=== PATIENT | female | born 1950 | race African-American/Black ===

== ENCOUNTER 2017-02-19 19:26 | Emergency (ER) | payer OTHER ==
[2017-02-19 19:34] VITALS: BMI 27.6
--- NOTE | 2017-02-19 20:45 | DR.GENAD ---
HPI - PCP Primary Care Physician: gena - Complaint/Symptoms Chief Complaint Doctors Comments: Patient presents with complaint of cough and congestion of one days duration. She states that she has a cold. Chief Complaint:: cough cold congestion - Source History Provided: Patient - Mode of Arrival Mode of Arrival: Ambulatory - Timing Onset of Chief Complaint: 02/18/17 PMH - PMH Past Medical History: Yes Past Medical History: Hypertension Past Surgical History: Yes Surgical History: Hysterectomy - Family History History of Family Medical Conditions: Yes Family Medical History: Coronary Artery Disease, Hypertension - Social History Does patient currently use any type of tobacco product: No Have you used tobacco products in the last 12 months: No Type of Tobacco Use: Cigarettes Does any household member use tobacco: No Alcohol Use: None Do you use any recreational Drugs:: No Lives With: Spouse Lives Where: Home - infectious screening In the last 2 months have you had wt loss of >10#?: NO Have you had fever, night sweats or hemotysis?: No Have you traveled outside the country in the last 6 months?: No Isolation: Standard ROS - Review of Systems Constitutional: negative: Diaphoresis Eyes: No Symptoms Reported ENTM: No Symptoms Reported Respiratoy: No Symptoms Reported Cardiovascular: No Symptoms Reported Gastrointestinal/Abdominal: No Symptoms Reported Genitourinary: No Symptoms Reported Neurological: No Symptoms Reported Musculoskeletal: No Symptoms Reported Integumentary: No Symptoms Reported Hematologic/Lymphatic: No Symptoms Reported Endocrine: No Symptoms Reported Psychiatric: No Symptoms Reported All Other Systems: Reviewed and Negative PE - Vital Signs Vitals: Temperature 99.8 F Pulse Rate 101 Respiratory Rate 16 Blood Pressure 201/105 O2 Sat by Pulse Oximetry 100 - General Limitations: No Limitations General Appearance: Alert, In No Apparent Distress - Head Head Exam: Normal Inspection, Atraumatic - Eyes Eye exam: Normal Appearance, PERRL, EOMI - ENT ENT Exam: Normal Exam, Normal Oropharynx External Ear Exam: Normal External Inspection TM/Canal Exam: Bilateral Normal Nose Exam: Normal Nose Exam, Sinus Tenderness Mouth Exam: Normal Inspection, Drooling Throat Exam: Normal Inspection, Tonsillar Erythema - Neck Neck Exam: Normal Inspection, Full ROM - Chest Chest Inspection: Normal Inspection, Symmetric Chest Wall Rise - Respiratory Respiratory Exam: Normal Lung Sounds Bilat Respiratory Exam: Bilateral Clear to Auscultation - Abdominal Exam Abdominal Exam: Normal Inspection, Normal Bowel Sounds Abdominal Tenderness: negative: RUQ, RLQ, LUQ, LLQ, Epigastrium, Suprapubic, Diffuse, Mild, Moderate, Severe, Other - Extremities Extremities Exam: Normal Inspection, Full ROM - Back Back Exam: Normal Inspection - Neurologic Neurological Exam: Alert, Oriented X3, CN II-XII Intact - Psychiatric Psychiatric Exam: Normal Affect, Normal Mood - Skin Skin Exam: Warm, Dry, Intact ROR - Labs Reviewed Laboratory Results Reviewed?: Yes (strep negative) Laboratory: Streptococcus Screen Negative (NEGATIVE) 02/19/17 20:16 - Diagnosis Discharge Problem: Upper respiratory infection Qualifiers: URI type: unspecified viral URI Qualified Code(s): J06.9 - Acute upper respiratory infection, unspecified; B97.89 - Other viral agents as the cause of diseases classified elsewhere; B97.89 - Other viral agents as the cause of diseases classified elsewhere - Discharge Plan Condition: Stable - Follow ups/Referrals Follow ups/Referrals: JESSICA CHAVEZ [Primary Care Provider] - 3 days - Instructions
[2017-02-19] MEDS ORDERED: TUSSIONEX PENNKINETIC SUSP PO ONE (20:46)
[2017-02-19] MEDS ORDERED: CATAPRES TAB 0.1 MG PO ONE (20:55)
[2017-02-19] MEDS ORDERED: TUSSIONEX PENNKINETIC SUSP ONE (20:56)
[2017-02-19] MEDS ORDERED: CATAPRES TAB 0.1 MG ONE (20:56)
[2017-02-19 22:05] VITALS: BP 173/86
== END 2017-02-19 22:00 | disposition home or self-care (01) ==
LOC: ER 19:41
DX: J06.9 Acute upper respiratory infection, unspecified (principal); B97.89 Other viral agents as the cause of diseases classified elsewhere
CPT/HCPCS: 87070; 87880; 99282

== ENCOUNTER → 2017-03-19 | Outpatient (CLI) | payer OTHER ==
[2017-02-19 22:05] VITALS: BP 173/86
--- NOTE | 2017-03-19 13:30 | RAD ---
Examination: Chest, PA and lateral views History: Cough, hypertension Comparison reference: 09/05/2014 Findings: Continued normal heart size with clear lungs. There is tortuous ectasia of the descending a esau. There is no evidence for CHF, pneumonia or pleural effusion. Impression: No interval change; no acute disease. Reported By:
== END ==
LOC: RAD 12:21
PROVIDERS: ATTEND Nurse Practitioner Family
DX: R05 Cough (principal); J41.8 Mixed simple and mucopurulent chronic bronchitis
CPT/HCPCS: 71020

== ENCOUNTER → 2017-04-02 | Outpatient (CLI) | payer OTHER ==
--- NOTE | 2017-04-06 10:55 | MG ---
HISTORY: SCREENING Comparison: 01/29/2016 FINDINGS: Bilateral CC and MLO projections of the right and left breast were obtained. Scattered fibroglandula r tissue is seen to be present. No significant architectural distortion, mass or clustered microcalc ifications can be observed to suggest malignancy. No skin thickening or nipple retraction is appreci ated. No pathological lymphadenopathy can be identified. Benign-appearing calcifications scattered throughout the right and left breasts are observed. IMPRESSION: NO RADIOGRAPHIC EVIDENCE OF MALIGNANCY. ACR CATEGORY 2 - benign findings. FOLLOW-UP EXAM 1 YEAR. Diagnostic CAD was utilized and reviewed. * 0 (ZERO) - ASSESSMENT INCOMPLETE; ADDITIONAL IMAGING IS NEEDED. * 1/ (ONE) - NEGATIVE. * 2/II (TWO) - BENIGN FINDINGS. * 3/III (THREE) - PROBABLY BENIGN FINDING; SHORT INTERVAL FOLLOW-UP SUGGESTED. * 4/IV (FOUR) - SUSPICIOUS ABNORMALITY; BIOPSY SHOULD BE CONSIDERED. * 5/V - HIGHLY SUSPICIOUS OF MALIGNANCY; BIOPSY SHOULD BE PERFORMED. A NEGATIVE X-RAY REPORT SHOULD NOT DELAY BIOPSY IF A DOMINANT OR CLINICALLY SUSPICIOUS MASS IS PRESENT; 4 TO 8 PERCENT OF CANCERS ARE NOT IDENTIFIED BY X-RAY. A NEGA TIVE REPORT MAY REINFORCE THE CLINICAL IMPRESSION. ADENOSIS AND DENSE BREASTS MAY OBSCURE AN UNDERLY ING NEOPLASM. Reported By:
== END ==
LOC: RAD 10:16
PROVIDERS: ATTEND Nurse Practitioner Family
DX: Z12.31 Encounter for screening mammogram for malignant neoplasm of breast (principal)
CPT/HCPCS: 77067

== ENCOUNTER → 2017-08-21 | Outpatient (CLI) | payer OTHER ==
[2017-08-21 08:57] LABS: BASOPHILS # (AUTO) 0.1 X10^3/uL (0.0-0.1); BASOPHILS % (AUTO) 0.8 % (0.2-1.0); EOSINOPHILS # (AUTO) 0.3 x10^3/uL (0.0-0.2); EOSINOPHILS % (AUTO) 3.6 % (0.9-2.9); HEMATOCRIT 39.1 % (36.0-47.0); HEMOGLOBIN 12.9 g/dL (12.0-16.0); LYMPHOCYTES % (AUTO) 28.4 % (21.0-51.0); MEAN CORPUSCULAR HEMOGLOBIN 25.8 pg (27.0-34.0); MEAN CORPUSCULAR HGB CONC 32.9 g/dL (33.0-35.0); MEAN CORPUSCULAR VOLUME 78.2 fL (80.0-100.0); MEAN PLATELET VOLUME 8.5 fL (7.4-11.0); MONOCYTES # (AUTO) 0.7 x10^3/uL (0.3-0.8); MONOCYTES % (AUTO) 9.3 % (0.0-13.0); NEUTROPHILS # (AUTO) 4.1 x10^3/uL (2.2-4.8); NEUTROPHILS % (AUTO) 57.9 % (42.0-75.0); PLATELET COUNT 190 X10^3/uL (150.0-450.0); RED CELL DISTRIBUTION WIDTH 14.6 % (11.6-16.5); WHITE BLOOD COUNT 7.1 X10^3/uL (3.6-10.0)
[2017-08-21 09:23] LABS: PLATELET MORPHOLOGY COMMENT NORMAL (NORMAL)
== END ==
LOC: LAB 08:29
PROVIDERS: ATTEND Internal Medicine Gastroenterology
DX: K64.0 First degree hemorrhoids (principal); K92.1 Melena
CPT/HCPCS: 36415; 82274; 85025

== ENCOUNTER → 2017-09-23 | Outpatient (CLI) | payer OTHER ==
[2017-08-27 10:38] VITALS: BP 140/75
--- NOTE | 2017-09-23 10:37 | RAD ---
Examination: X-rays of the left knee. Clinical history: Left knee pain, denies injury. Technique: Four views of the left knee were obtained. Comparison: None available. Findings: No acute fracture, dislocation, or destructive bony lesion is noted. Osteophytosis is noted in the medial wall, lateral and patellofemoral compartments of the knee, most pronounced in the medial compartment of the knee, consistent with moderate to severe tricompartmental osteoarthritis. No soft tissue abnormality is noted. Impression: 1. No acute fracture or dislocation. 2. Arthropathy, as described above. Reported By:
--- NOTE | 2017-09-23 10:39 | RAD ---
History: Right knee pain Study: Right knee three views Findings: Three views the right knee demonstrates marginal spurring predominantly affecting the media l joint compartment. No fracture, bony destructive process or joint effusion is identified. Impression: Mild to moderate osteoarthrosis of the right knee. Reported By:
== END | disposition home or self-care (01) ==
LOC: RAD 10:04
PROVIDERS: ATTEND Nurse Practitioner Family
DX: M25.562 Pain in left knee (principal); M25.561 Pain in right knee; M17.11 Unilateral primary osteoarthritis, right knee; M12.9 Arthropathy, unspecified
CPT/HCPCS: 73564

== ENCOUNTER → 2017-09-24 | Outpatient (CLI) | payer OTHER ==
[2017-08-27 10:38] VITALS: BP 140/75
--- NOTE | 2017-09-24 15:43 | MRI ---
History: Left knee pain. Exam: Non contrast MRI exam of the left knee. Technique: Multisequence and multiplanar T1 and T2 weighted sequences of the left knee were obtained without the administration of IV paramagnetic contrast at 1.5 [place]. Comparison: None available. Findings: There is moderate, grade 2 and regions of grade 3, patellofemoral chondromalacia and moderate patello femoral compartment DJD observed. There is full-thickness chondromalacia seen throughout the medial k nee compartment where there is also advanced/severe medial knee compartment degenerative change/osteo arthritis with marginal osteophyte formation seen. There is chronic degenerative maceration of much o f the body and posterior horn/root of the medial meniscus observed. There is low-grade undersurface f raying of the lateral meniscus appreciated. There is a large posterior joint osteochondral loose body seen in the medial/posterior knee joint on image number 24 series 701 which measures 12 x 17 mm. Sev eral other tiny loose bodies are also seen in the medial knee compartment. There is a chronic strain of the otherwise intact MCL. There is a chronic strain mucoid degeneration of the otherwise intact AC L. The PCL appears grossly intact as well. No acute posterior lateral corner injury is seen. Degenera tive bone marrow edema seen within the medial femoral condyles and medial tibial plateau with marked medial compartment joint space height loss observed. There is distal quadriceps peritendinitis and mi ld patellar tendinosis, proximally. No other significant knee joint injuries or musculoskeletal abnor malities are identified on this exam. No acute/stress fracture or lytic lesion is observed. Impression: Chronic maceration of much of the medial meniscus with severe, full-thickness, grade 4 medial knee co mpartment chondromalacia and advanced medial knee compartment DJD with marginal medial knee joint ost eophytosis. Chronic ACL and MCL strains. Grade 2/3 patellofemoral compartment chondromalacia and moderate patello femoral compartment osteoarthritis. Degenerative bone marrow edema and marginal osteophytosis seen within medial knee compartment seconda ry to the degree of chondromalacia. Large posterior/medial knee joint osteochondral loose body which measures 12 x 17 mm with several sma ll loose body suggested in the medial knee compartment. Reported By:
== END | disposition home or self-care (01) | DRG 556 ==
LOC: RAD 12:52
PROVIDERS: ATTEND Nurse Practitioner Family
DX: M25.562 Pain in left knee (principal); M17.12 Unilateral primary osteoarthritis, left knee; M94.262 Chondromalacia, left knee
CPT/HCPCS: 73721

== ENCOUNTER 2019-06-21 17:46 | Observation (INO) ==
[2019-06-21 17:57] VITALS: BMI 27.4
--- NOTE | 2019-06-21 20:19 | DR.GENAD ---
HPI Time Seen Time Seen by Provider: 06/21/19 20:15 PCP Primary Care Physician: FRAN KUHN HPI Comment HPI Comment: As below; brbpr x2; no n/v/d/constipation; last stool yesterday was wnl; feels good overall; her bp is normally controlled; no cp, sob. Complaint/Symptoms Chief Complaint:: PT. STATES SHE HAD A COLONSCOPY ON 06/13/[address] ARGUETA. PT. STATES TODAY SHE HAD A BOWEL MOVEMENT AND HER TOILET WAS FULL OF BRIGHT RED BLOOD. PT. C/O ABDOMINAL PAIN. PT. STATES SHE HAS HAD INTERNAL HEMORRHOIDS IN THE PAST AND THEY DID REMOVE SOME POLYPS. Source History Provided: Patient Mode of Arrival Mode of Arrival: Ambulatory Timing Onset of Chief Complaint: 06/21/19 PMH PMH Past Medical History: Yes Past Medical History: GERD, Hypertension and Kidney Stones Past Surgical History: Yes Surgical History: Hysterectomy and Ortho Surgery Family History History of Family Medical Conditions: Yes Family Medical History: Cancer, Coronary Artery Disease and Hypertension Social History Does patient currently use any type of tobacco product: No Have you used tobacco products in the last 12 months: No Type of Tobacco Use: None Does any household member use tobacco: No Alcohol Use: None Do you use any recreational Drugs:: No Lives With: Family Lives Where: Home infectious screening In the last 2 months have you had wt loss of >10#?: NO Have you had fever, night sweats or hemotysis?: No Have you traveled outside the country in the last 6 months?: No Isolation: Standard ROS Review of Systems Constitutional: No Symptoms Reported ENTM: No Symptoms Reported Respiratoy: No Symptoms Reported Cardiovascular: No Symptoms Reported Gastrointestinal/Abdominal: See HPI Genitourinary: No Symptoms Reported Neurological: No Symptoms Reported Musculoskeletal: No Symptoms Reported Hematologic/Lymphatic: See HPI PE Vital Signs Vitals: Temperature 97.9 F Pulse Rate 63 Respiratory Rate 17 Blood Pressure [Left Arm] 178/89 Blood Pressure 131/69 O2 Sat by Pulse Oximetry 97 General Limitations: No Limitations General Appearance: Alert and In No Apparent Distress Head Head Exam: Normal Inspection, Atraumatic and Normocephalic Eyes Eye exam: Normal Appearance Neck Neck Exam: Normal Inspection and Full ROM Chest Chest Inspection: Normal Inspection and Symmetric Chest Wall Rise Respiratory Respiratory Exam: Normal Lung Sounds Bilat Respiratory Exam: Bilateral: Clear to Auscultation Cardiovascular Cardiovascular Exam: Regular Rate and Normal Rhythm Abdominal Exam Abdominal Exam: Normal Inspection, Normal Bowel Sounds, Soft and Other (rectal: no gross blood or stool, ? int hemorrhoid, several external hemorrhoids) Extremities Extremities Exam: Normal Inspection Neurologic Neurological Exam: Alert, Oriented X3 and CN II-XII Intact COURSE Reevaluation 1st: Unchanged Consultation Call Returned: 23:02 (Fay accepts admission) ROR Labs Reviewed Laboratory Results Reviewed?: Yes Result Diagrams: 06/21/19 20:32 06/21/19 20:32 Laboratory: WBC 9.6 X10^3/uL (3.6-10.0) 06/21/19 20: RBC 4.91 X10^6/uL (3.5-5.4) 06/21/19 20: Hgb 12.9 g/dL (12.0-16.0) 06/21/19 20: Hct 39.8 % (36.0-47.0) 06/21/19: MCV 81.1 fL (80.0-100.0) 06/21/19: MCH 26.2 pg (27.0-34.0) L 06/21/19 20: MCHC 32.3 g/dL (33.0-35.0) L 06/21/19 20: RDW 14.6 % (11.6-16.5) 06/21/19 20:32 Plt Count 207 X10^3/uL (150.0-450.0) 06/21/19: MPV 7.8 fL (7.4-11.0) 06/21/19 20: Neut % (Auto) 64.5 % (42.0-75.0) 06/21/19 20: Lymph % (Auto) 25.6 % (21.0-51.0) 06/21/19 20: [place] % (Auto) 6.8 % (0.0-13.0) 06/21/19 20: Eos % (Auto) 2.2 % (0.9-2.9) 06/21/19 20: Baso % (Auto) 0.9 % (0.2-1.0) 06/21/19 20: Neut # (Auto) 6.2 x10^3/uL (2.2-4.8) H 06/21/19 20:32 Lymph # (Auto) 2.5 X10^3/uL (1.3-2.9) 06/21/19 20:32 [place] # (Auto) 0.7 x10^3/uL (0.3-0.8) 06/21/19 20:32 Eos # (Auto) 0.2 x10^3/uL (0.0-0.2) 06/21/19 20:32 Baso # (Auto) 0.1 X10^3/uL (0.0-0.1) 06/21/19 20:32 Absolute Nucleated RBC 0.0 /100WBC 06/21/19 20:32 Sodium 141 mmol/L (136-145) 06/21/19 20:32 Corrected Sodium 142 mmol/L (136-145) 06/21/19 20:32 Potassium 4.6 mmol/L (3.5-5.1) 06/21/19:32 Chloride 102 mmol/L (98-107) 06/21/19 20:32 Carbon Dioxide 33.4 mmol/L (21-32) H 06/21/19 20:32 BUN 12 mg/dL (7-18) 06/21/19 20:32 Creatinine 1.06 mg/dL (0.55-1.02) H 06/21/19 20:32 Est GFR (MDRD) Af Amer > 60 (>60) 06/21/19 20:32 Est GFR (MDRD) Non-Af 54 (>60) L 06/21/19 20:32 Glucose 130 mg/dL (65-99) H 06/21/19 20:32 Calcium 9.6 mg/dL (8.5-10.1) 06/21/19 20:32 Corrected Calcium TNP 06/21/19 20:32 Total Bilirubin 0.30 mg/dL (0.2-1.0) 06/21/19 20:32 AST 15 Units/L (15-37) 06/21/19 20:32 ALT 17 Units/L (12-78) 06/21/19 20:32 Alkaline Phosphatase 97 Units/L (46-116) 06/21/19 20:32 Total Protein 8.4 g/dL (6.4-8.2) H 06/21/19 20:32 Albumin 4.0 g/dL (3.4-5.0) 06/21/19 20:32 Globulin 4.4 g/dL (2.5-4.5) 06/21/19 20:32 Albumin/Globulin Ratio 0.9 Ratio (1.1-2.1) L 06/21/19 20:32 Stool Description Fob tube 06/21/19 22:53 Stl Occult Blood (IFOB) Positive (NEGATIVE) A 06/21/19 22:53 XRAY XRAY Interpreted by: Radiologist X-ray Results: ABD SERIES FINDINGS: There is prominent heart size, without pneumothorax or effusion. Lungs are mildly hyperinflated. There is no high-grade obstruction, free air or pneumatosis. No abnormal calcific density is identified. Opioid Opioid Risk Tool Age (Satish box if 16-45): No History of Preadolescent Sexual Abuse: No Total: 0 Total Score Risk Category: Low Risk Copyright: Avelino ARGUELLO predicting aberrant behaviors Diagnosis Discharge Problem: Bright red rectal bleeding, Hypertension, uncontrolled Instructions Instructions: Rectal Bleeding, Spil-la-Hkqt Forms: Excuse From Work Patient Portal
[2019-06-21] MEDS ORDERED: APRESOLINE TAB 25 MG PO STA (20:21)
[2019-06-21 20:39] LABS: BASOPHILS # (AUTO) 0.1 X10^3/uL (0.0-0.1); BASOPHILS % (AUTO) 0.9 % (0.2-1.0); EOSINOPHILS # (AUTO) 0.2 x10^3/uL (0.0-0.2); EOSINOPHILS % (AUTO) 2.2 % (0.9-2.9); HEMATOCRIT 39.8 % (36.0-47.0); HEMOGLOBIN 12.9 g/dL (12.0-16.0); LYMPHOCYTES # (AUTO) 2.5 X10^3/uL (1.3-2.9); LYMPHOCYTES % (AUTO) 25.6 % (21.0-51.0); MEAN CORPUSCULAR HEMOGLOBIN 26.2 pg (27.0-34.0); MEAN CORPUSCULAR HGB CONC 32.3 g/dL (33.0-35.0); MEAN CORPUSCULAR VOLUME 81.1 fL (80.0-100.0); MEAN PLATELET VOLUME 7.8 fL (7.4-11.0); MONOCYTES # (AUTO) 0.7 x10^3/uL (0.3-0.8); MONOCYTES % (AUTO) 6.8 % (0.0-13.0); NEUTROPHILS # (AUTO) 6.2 x10^3/uL (2.2-4.8); NEUTROPHILS % (AUTO) 64.5 % (42.0-75.0); PLATELET COUNT 207 X10^3/uL (150.0-450.0); RED BLOOD COUNT 4.91 X10^6/uL (3.5-5.4); RED CELL DISTRIBUTION WIDTH 14.6 % (11.6-16.5); WHITE BLOOD COUNT 9.6 X10^3/uL (3.6-10.0)
[2019-06-21 20:50] LABS: ALANINE AMINOTRANSFERASE 17 Units/L (12-78); ALKALINE PHOSPHATASE 97 Units/L (46-116); ASPARTATE AMINO TRANSFERASE 15 Units/L (15-37); BLOOD UREA NITROGEN 12 mg/dL (7-18); CALCIUM 9.6 mg/dL (8.5-10.1); CARBON DIOXIDE 33.4 mmol/L (21-32); CHLORIDE 102 mmol/L (98-107); COR NA(FOR HYPERGLY) 142 mmol/L (136-145); CREATININE 1.06 mg/dL (0.55-1.02); SODIUM 141 mmol/L (136-145); TOTAL PROTEIN 8.4 g/dL (6.4-8.2); eGFR NON BLACK RACES 54 (>60)
--- NOTE | 2019-06-21 22:37 | RAD ---
Acute abdomen series supine upright chestIndication: Abdominal pain. History of colonoscopy 5 days prior. Bloody stools now withCOMPARISONNo recent prior abdominal imaging. Chest radiograph from March 21, 2017 reviewedFINDINGS: There is prominent heart size, without pneumothorax or effusion. Lungs are mildly hyperinflated. There is no high-grade obstruction, free air or pneumatosis. No abnormal calcific density is identified.IMPRESSIONNo high-grade obstruction, free air or pneumatosis. Cardiomegaly and COPD notedElectronically signed by: CARA NAVARRO (Jun 21, 2019 22:35:41)
[2019-06-21] MEDS ORDERED: APRESOLINE INJ 20 MG VIAL IVP PRN (23:15)
[2019-06-22] MEDS: NS 1000 ML 1,000 ML IV SCH ×2 (00:30→13:23)
[2019-06-22 00:52] LABS: BASOPHILS # (AUTO) 0.1 X10^3/uL (0.0-0.1); BASOPHILS % (AUTO) 0.9 % (0.2-1.0); EOSINOPHILS # (AUTO) 0.2 x10^3/uL (0.0-0.2); EOSINOPHILS % (AUTO) 2.7 % (0.9-2.9); HEMATOCRIT 38.7 % (36.0-47.0); HEMOGLOBIN 12.6 g/dL (12.0-16.0); LYMPHOCYTES # (AUTO) 2.8 X10^3/uL (1.3-2.9); LYMPHOCYTES % (AUTO) 31.8 % (21.0-51.0); MEAN CORPUSCULAR HGB CONC 32.4 g/dL (33.0-35.0); MEAN CORPUSCULAR VOLUME 80.2 fL (80.0-100.0); MEAN PLATELET VOLUME 7.6 fL (7.4-11.0); MONOCYTES # (AUTO) 0.8 x10^3/uL (0.3-0.8); MONOCYTES % (AUTO) 8.8 % (0.0-13.0); NEUTROPHILS # (AUTO) 4.8 x10^3/uL (2.2-4.8); NEUTROPHILS % (AUTO) 55.8 % (42.0-75.0); PLATELET COUNT 193 X10^3/uL (150.0-450.0); RED BLOOD COUNT 4.83 X10^6/uL (3.5-5.4); RED CELL DISTRIBUTION WIDTH 14.6 % (11.6-16.5); WHITE BLOOD COUNT 8.7 X10^3/uL (3.6-10.0)
[2019-06-22] MEDS ORDERED: ULTRAM PO PRN (05:31)
[2019-06-22 06:04] LABS: BASOPHILS % (AUTO) 0.5 % (0.2-1.0); EOSINOPHILS # (AUTO) 0.2 x10^3/uL (0.0-0.2); HEMATOCRIT 37.5 % (36.0-47.0); HEMOGLOBIN 12.3 g/dL (12.0-16.0); LYMPHOCYTES # (AUTO) 2.3 X10^3/uL (1.3-2.9); LYMPHOCYTES % (AUTO) 34.3 % (21.0-51.0); MEAN CORPUSCULAR HEMOGLOBIN 26.5 pg (27.0-34.0); MEAN CORPUSCULAR HGB CONC 32.8 g/dL (33.0-35.0); MEAN CORPUSCULAR VOLUME 80.7 fL (80.0-100.0); MEAN PLATELET VOLUME 8.2 fL (7.4-11.0); MONOCYTES # (AUTO) 0.7 x10^3/uL (0.3-0.8); MONOCYTES % (AUTO) 9.9 % (0.0-13.0); NEUTROPHILS # (AUTO) 3.5 x10^3/uL (2.2-4.8); NEUTROPHILS % (AUTO) 52.3 % (42.0-75.0); PLATELET COUNT 181 X10^3/uL (150.0-450.0); RED BLOOD COUNT 4.64 X10^6/uL (3.5-5.4); RED CELL DISTRIBUTION WIDTH 14.6 % (11.6-16.5); WHITE BLOOD COUNT 6.6 X10^3/uL (3.6-10.0)
[2019-06-22 06:15] LABS: ALANINE AMINOTRANSFERASE 15 Units/L (12-78); ALBUMIN 3.5 g/dL (3.4-5.0); ALKALINE PHOSPHATASE 86 Units/L (46-116); ASPARTATE AMINO TRANSFERASE 15 Units/L (15-37); BLOOD UREA NITROGEN 8 mg/dL (7-18); CALCIUM 8.9 mg/dL (8.5-10.1); CARBON DIOXIDE 30.4 mmol/L (21-32); CHLORIDE 102 mmol/L (98-107); CREATININE 0.88 mg/dL (0.55-1.02); SODIUM 140 mmol/L (136-145); TOTAL PROTEIN 7.4 g/dL (6.4-8.2); eGFR NON BLACK RACES > 60 (>60)
[2019-06-22] MEDS ORDERED: PATIENT'S HOME MEDICATION (Ranitidine Hcl 150 MG) PO SCH (09:00)
[2019-06-22] MEDS ORDERED: TENORMIN PO SCH (09:00)
--- NOTE | 2019-06-22 09:02 | DR.H&P ---
H&P History & Physical for Day of: H&P Date: 06/22/19 Chief Complaint Chief Complaint: bloody stools and abdominal pain Allergies Allergies Allergy/AdvReac Type Severity Reaction Status Date / Time No Known Drug Allergies Allergy Verified 06/22/19 01:08 History of Present Illness History of Present Illness: Ms. Saenz is a 68y/o female with a PMH of HTN, diverticulosis presents with one episode of bloody bowel movement. Patient reports the toilet was filled with bright red blood mixed with stool. She had a colonoscopy done on 06/13/[address] Maya. She was found to have pandiverticulosis, colon polyps and internal hemorrhoids. She states she did not notice any blood after the procedure until yesterday. She had a second BM in the ED and it was similar with a lot of blood clots. She reports diffuse abdominal discomfort. She denies any nausea or vomiting, she has not been sick recently. 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 Family History Family Medical History: Cancer, Coronary Artery Disease and Hypertension Social History Does patient currently use any type of tobacco product: No Have you used tobacco products in the last 12 months: No Type of Tobacco Use: None Does any household member use tobacco: No Alcohol Use: None Drug Use: None Prescription drug monitoring program results: PDMP was not reviewed Medications Home Medications: No Known Drug Allergies Allergy (Verified 06/22/19 01:08) CONTINUE taking the following medications Vitamin D 5,000 1 cap PO DAILY 06/22/19 [History] biotin 1 mg PO DAILY 06/22/19 [History] clonidine HCl 0.1 mg PO BID PRN 06/22/19 [History] docusate sodium 100 mg PO DAILY 06/22/19 [History] ondansetron HCl [Zofran] 4 mg PO Q4-6H PRN 06/22/19 [History] red yeast rice 600 mg PO DAILYPC 06/22/19 [History] temazepam 30 mg PO HS 06/22/19 [History] Labs Result Diagrams: 06/22/19 05:28 06/22/19 05:28 Labs: Laboratory WBC 6.6 X10^3/uL (3.6-10.0) 06/22/19 05:28 RBC 4.64 X10^6/uL (3.5-5.4) 06/22/19 05:28 Hgb 12.3 g/dL (12.0-16.0) 06/22/19 05:28 Hct 37.5 % (36.0-47.0) 06/22/19 05:28 MCV 80.7 fL (80.0-100.0) 06/22/19 05:28 MCH 26.5 pg (27.0-34.0) L 06/22/19 05:28 MCHC 32.8 g/dL (33.0-35.0) L 06/22/19 05:28 RDW 14.6 % (11.6-16.5) 06/22/19 05:28 Plt Count 181 X10^3/uL (150.0-450.0) 06/22/19 05:28 MPV 8.2 fL (7.4-11.0) 06/22/19 05:28 Neut % (Auto) 52.3 % (42.0-75.0) 06/22/19 05:28 Lymph % (Auto) 34.3 % (21.0-51.0) 06/22/19 05:28 [place] % (Auto) 9.9 % (0.0-13.0) 06/22/19 05:28 Eos % (Auto) 3.0 % (0.9-2.9) H 06/22/19 05:28 Baso % (Auto) 0.5 % (0.2-1.0) 06/22/19 05:28 Neut # (Auto) 3.5 x10^3/uL (2.2-4.8) 06/22/19 05:28 Lymph # (Auto) 2.3 X10^3/uL (1.3-2.9) 06/22/19 05:28 [place] # (Auto) 0.7 x10^3/uL (0.3-0.8) 06/22/19 05:28 Eos # (Auto) 0.2 x10^3/uL (0.0-0.2) 06/22/19 05:28 Baso # (Auto) 0.0 X10^3/uL (0.0-0.1) 06/22/19 05:28 Absolute Nucleated RBC 0.1 /100WBC 06/22/19 05:28 Sodium 140 mmol/L (136-145) 06/22/19 05:28 Corrected Sodium TNP 06/22/19 05:28 Potassium 3.6 mmol/L (3.5-5.1) 06/22/19 05:28 Chloride 102 mmol/L (98-107) 06/22/19 05:28 Carbon Dioxide 30.4 mmol/L (21-32) 06/22/19 05:28 BUN 8 mg/dL (7-18) 06/22/19 05:28 Creatinine 0.88 mg/dL (0.55-1.02) 06/22/19 05:28 Est GFR (MDRD) Af Amer > 60 (>60) 06/22/19 05:28 Est GFR (MDRD) Non-Af > 60 (>60) 06/22/19 05:28 Glucose 99 mg/dL (65-99) 06/22/19 05:28 Calcium 8.9 mg/dL (8.5-10.1) 06/22/19 05:28 Corrected Calcium TNP 06/22/19 05:28 Total Bilirubin 0.40 mg/dL (0.2-1.0) 06/22/19 05:28 AST 15 Units/L (15-37) 06/22/19 05:28 ALT 15 Units/L (12-78) 06/22/19 05:28 Alkaline Phosphatase 86 Units/L (46-116) 06/22/19 05:28 Total Protein 7.4 g/dL (6.4-8.2) 06/22/19 05:28 Albumin 3.5 g/dL (3.4-5.0) 06/22/19 05:28 Globulin 3.9 g/dL (2.5-4.5) 06/22/19 05:28 Albumin/Globulin Ratio 0.9 Ratio (1.1-2.1) L 06/22/19 05:28 Stool Description Fob tube 06/21/19 22:53 Stl Occult Blood (IFOB) Positive (NEGATIVE) A 06/21/19 22:53 Review of Systems Constitutional: No Symptoms Reported Eyes: No Symptoms Reported ENT: No Symptoms Reported Respiratory: No Symptoms Reported Cardiovascular: Palpitations Gastrointestinal: Abdominal Pain and Hematochezia Genitourinary: No Symptoms Reported Musculoskeletal: No Symptoms Reported Skin: No Symptoms Reported Neurological: No Symptoms Reported Physical Exam Vital Signs: Temperature 98.1 F Pulse Rate [Left Brachial] 66 Pulse Rate 63 Respiratory Rate 20 Blood Pressure [Left Arm] 162/82 Blood Pressure 170/62 O2 Sat by Pulse Oximetry 93 Oriented: Normal Eyes: Normal Respiratory: Clear Throughout Cardiovascular: Normal Auscultation: Bowel Sounds: Increased Tenderness: Epigastric, Periumbilical and Mild Skin: Normal Musculoskeletal: Normal Psychiatric: Normal Mood Description: Calm Affect: Normal Speech Pattern: Clear and Appropriate Assessment/Plan (1) Bright red rectal bleeding: Status: Acute Plan: recent colonoscopy done on 06/13/2019, stool occult positive Will get a CTAP to evaluate further Consult Dr Maya Monitor H/H , hgb stable at 12.3 (2) Hypertension, uncontrolled: Status: Acute Plan: Resume home medications: metoprolol tartrate, hydralazine prn (3) Palpitations: Status: Acute Plan: Reports palpitations, telemetry monitoring Will obtain last EKG was PCP, patient reports it was abnormal (4) Diverticulosis: Status: Acute (5) Internal hemorrhoid: Status: Acute (6) JAMES (acute kidney injury): Status: Acute Plan: resolved, Cr 1.06 to 0.88 Review H&P Reviewed: Yes Patient was examined?: Yes
[2019-06-22] MEDS: NexIUM PO SCH ×2 (10:01→20:35)
[2019-06-22] MEDS: LOPRESSOR TAB 25 MG PO SCH (10:01)
--- NOTE | 2019-06-22 15:53 | CT ---
HISTORYABD PAIN, S/P COLONOSCOPY 6 DAYS AGO, BLOODY STOOLS.STUDYCT abdomen and pelvis after oral enhancement of the gastrointestinal tract and after intravenous infusion of 100 milliliters Omnipaque 350. Sagittal and coronal reformations were provided. Dose reduction techniques were utilized.COMPARISONNoneFINDINGSThe visualized lung bases are clear. There are several small cystic lesions in the spleen. The liver is unremarkable. There is a septation in the gallbladder. There is no biliary dilatation. The pancreas and adrenal glands and kidneys are unremarkable. There is no ascites or adenopathy. The appendix is normal. There is diverticulosis most prominent in the sigmoid and left colon. There is no significant stranding of fat planes. The uterus is unremarkable. There is no adnexal mass. The urinary bladder is unremarkable. There is severe degenerative changes in the lower lumbar spine.IMPRESSIONExtensive diverticulosis, no acute disease demonstrated.Electronically signed by: EMANUEL HAM (Jun 22, 2019 15:52:00)
--- NOTE | 2019-06-22 20:15 | DR.CONSULT ---
Consult - Consultation for Day of: Date: 06/22/19 - Chief Complaint Chief Complaint: Patient referred for rectal bleeding s/p colon. Patient with complaints of hematochezia. - History of Present Illness History of Present Illness: Patient is a 68 yo female who was referred for rectal bleeding s/p colon. Patient with complaints of hematochezia that startedyesterday around 5pm and has not seen since last night she was having some lower abdominal pain but that has improved. Patient states she was passing blood clots. Patient denies dysphagia, dyspepsia, nausea, vomiting, constipation, diarrhea and melena. Last colon was 06/16/19 which showed pandiverticulosis, internal hemorrhoids and hyperplastic polyps. Last EGD was 08/27/17 which showed distal esophagitis, moderated gastritis, hiatal hernia and pancreatic rest. Hgb 12.3, Hct 37.5, BUN 8, Creatinine 0.88. Abdomen and pelvis CT showed Extensive diverticulosis, no acute disease demonstrated. - Past Medical History Past Medical History: GERD, Hypertension - Past Surgical History Surgical History: Hysterectomy Additional Surgical History: Knee Surgery - Family History Family Medical History: Cancer, Coronary Artery Disease, Hypertension - Social History Does patient currently use any type of tobacco product: No Have you used tobacco products in the last 12 months: No Type of Tobacco Use: None Does any household member use tobacco: No Alcohol Use: None Drug Use: None - Medications Home Medications: No Known Drug Allergies Allergy (Verified 06/22/19 01:08) CONTINUE taking the following medications Vitamin D 5,000 1 cap PO DAILY 06/22/19 [History] biotin 1 mg PO DAILY 06/22/19 [History] clonidine HCl 0.1 mg PO BID PRN 06/22/19 [History] docusate sodium 100 mg PO DAILY 06/22/19 [History] ondansetron HCl [Zofran] 4 mg PO Q4-6H PRN 06/22/19 [History] red yeast rice 600 mg PO DAILYPC 06/22/19 [History] temazepam 30 mg PO HS 06/22/19 [History] - Review of Systems Gastrointestinal: See HPI, Hematochezia. denies: Nausea, Vomiting, Abdominal Pain, Diarrhea, Constipation, Melena, Other - Physical Exam Vital Signs: Temperature 98.1 F Pulse Rate [Right Brachial] 56 Pulse Rate [Left Brachial] 66 Pulse Rate 63 Respiratory Rate 18 Blood Pressure [Right Arm] 142/76 Blood Pressure [Left Arm] 170/80 Blood Pressure 170/62 O2 Sat by Pulse Oximetry 94 Oriented: Normal Eyes: Normal Ear: Normal Nose: Normal Throat: Normal Respiratory: Clear Throughout Cardiovascular: Normal Auscultation: Bowel Sounds: Normal Palpation: Normal, Other (no distention). negative: Spleen Enlarged, Liver Enlarged, Mass Pulsatile Tenderness: Normal (non tender) Skin: Normal Musculoskeletal: Normal Psychiatric: Normal Mood Description: Calm, Appropriate Affect: Normal Speech Pattern: Clear, Appropriate - Plan Plan: Assessment. 1. Hematochezia likely internal hemorrhoids, possible diverticular bleed, bleeding has stopped. Plan. 1. Anusol Supp BId, Monitor Hgb, If bleeding persist may need endoscopic workup, cont with clear liquids. Plan reviewed with Dr. Maya - Allergies Allergies/Adverse Reactions: Allergies Allergy/AdvReac Type Severity Reaction Status Date / Time No Known Drug Allergies Allergy Verified 06/22/19 01:08
[2019-06-22] MEDS: ANUCORT-HC SUPP PR SCH (20:36)
[2019-06-22] MEDS: TYLENOL 325 MG TAB PO PRN (20:41)
[2019-06-22] MEDS ORDERED: LOPRESSOR TAB 25 MG PO SCH (21:00)
[2019-06-22] MEDS ORDERED: RESTORIL CAP 30 MG PO SCH (21:00)
[2019-06-23] MEDS: NS 1000 ML 1,000 ML IV SCH (02:30)
[2019-06-23] MEDS: TYLENOL 325 MG TAB PO PRN (04:55)
[2019-06-23 06:35] LABS: BASOPHILS % (AUTO) 0.5 % (0.2-1.0); EOSINOPHILS # (AUTO) 0.2 x10^3/uL (0.0-0.2); EOSINOPHILS % (AUTO) 3.5 % (0.9-2.9); HEMATOCRIT 37.9 % (36.0-47.0); HEMOGLOBIN 12.6 g/dL (12.0-16.0); LYMPHOCYTES # (AUTO) 2.3 X10^3/uL (1.3-2.9); LYMPHOCYTES % (AUTO) 35.9 % (21.0-51.0); MEAN CORPUSCULAR HEMOGLOBIN 26.5 pg (27.0-34.0); MEAN CORPUSCULAR HGB CONC 33.2 g/dL (33.0-35.0); MEAN CORPUSCULAR VOLUME 79.9 fL (80.0-100.0); MEAN PLATELET VOLUME 8.1 fL (7.4-11.0); MONOCYTES # (AUTO) 0.7 x10^3/uL (0.3-0.8); MONOCYTES % (AUTO) 10.8 % (0.0-13.0); NEUTROPHILS # (AUTO) 3.2 x10^3/uL (2.2-4.8); NEUTROPHILS % (AUTO) 49.3 % (42.0-75.0); PLATELET COUNT 194 X10^3/uL (150.0-450.0); RED BLOOD COUNT 4.74 X10^6/uL (3.5-5.4); RED CELL DISTRIBUTION WIDTH 14.8 % (11.6-16.5); WHITE BLOOD COUNT 6.4 X10^3/uL (3.6-10.0)
[2019-06-23 06:51] LABS: BLOOD UREA NITROGEN 8 mg/dL (7-18); CALCIUM 9.4 mg/dL (8.5-10.1); CARBON DIOXIDE 31.7 mmol/L (21-32); CHLORIDE 102 mmol/L (98-107); SODIUM 139 mmol/L (136-145); eGFR NON BLACK RACES 58 (>60)
--- NOTE | 2019-06-23 08:20 | W.DIS.FURT ---
Summary of Discharge Admission Diagnosis Patient Problems (Updated 06/22/19 @ 09:08 by Nimo Aponte) JAMES (acute kidney injury) (Acute) N17.9 Internal hemorrhoid (Acute) K64.8 Diverticulosis (Acute) K57.90 Palpitations (Acute) R00.2 Hypertension, uncontrolled (Acute) I10 Bright red rectal bleeding (Acute) K62.5 Vital Signs: Vital Signs (72 hours) 06/21/19 17:54 06/21/19 19:00 06/21/19 20:00 Temperature 97.9 F Pulse Rate 63 Pulse Rate [Left Brachial] Pulse Rate [Right Brachial] Respiratory Rate 17 Blood Pressure 201/97 132/64 168/72 Blood Pressure [Left Arm] Blood Pressure [Right Arm] O2 Sat by Pulse Oximetry 97 06/21/19 21:00 06/21/19 22:00 06/21/19 23:00 Temperature Pulse Rate Pulse Rate [Left Brachial] Pulse Rate [Right Brachial] Respiratory Rate Blood Pressure 132/64 131/69 170/62 Blood Pressure [Left Arm] Blood Pressure [Right Arm] O2 Sat by Pulse Oximetry 06/22/19 00:07 06/22/19 00:32 06/22/19 04:00 Temperature 98.0 F 98.0 F Pulse Rate Pulse Rate [Left Brachial] 83 58 L Pulse Rate [Right Brachial] Respiratory Rate 18 16 Blood Pressure Blood Pressure [Left Arm] 170/62 170/68 174/80 Blood Pressure [Right Arm] O2 Sat by Pulse Oximetry 99 97 06/22/19 05:39 06/22/19 06:39 06/22/19 08:00 Temperature 98.1 F Pulse Rate Pulse Rate [Left Brachial] 66 Pulse Rate [Right Brachial] Respiratory Rate 18 20 20 Blood Pressure Blood Pressure [Left Arm] 162/82 Blood Pressure [Right Arm] O2 Sat by Pulse Oximetry 93 L 06/22/19 12:00 06/22/19 16:00 06/22/19 20:00 Temperature 98.4 F 98.1 F 98.7 F Pulse Rate Pulse Rate [Left Brachial] Pulse Rate [Right Brachial] 60 56 L 51 L Respiratory Rate 20 18 18 Blood Pressure Blood Pressure [Left Arm] 170/80 183/82 Blood Pressure [Right Arm] 142/76 O2 Sat by Pulse Oximetry 99 94 L 97 06/22/19 20:41 06/22/19 21:41 06/23/19 00:00 Temperature 97.9 F Pulse Rate Pulse Rate [Left Brachial] Pulse Rate [Right Brachial] 61 Respiratory Rate 20 18 14 Blood Pressure Blood Pressure [Left Arm] 174/80 Blood Pressure [Right Arm] O2 Sat by Pulse Oximetry 97 06/23/19 04:00 06/23/19 04:55 06/23/19 08:00 Temperature 98.5 F 98.5 F Pulse Rate Pulse Rate [Left Brachial] 56 L Pulse Rate [Right Brachial] 56 L Respiratory Rate 14 20 18 Blood Pressure Blood Pressure [Left Arm] 167/74 164/87 Blood Pressure [Right Arm] O2 Sat by Pulse Oximetry 98 92 L Labs: Laboratory Last Values WBC 6.4 X10^3/uL (3.6-10.0) 06/23/19 05:46 RBC 4.74 X10^6/uL (3.5-5.4) 06/23/19 05:46 Hgb 12.6 g/dL (12.0-16.0) 06/23/19 05:46 Hct 37.9 % (36.0-47.0) 06/23/19 05:46 MCV 79.9 fL (80.0-100.0) L 06/23/19 05:46 MCH 26.5 pg (27.0-34.0) L 06/23/19 05:46 MCHC 33.2 g/dL (33.0-35.0) 06/23/19 05:46 RDW 14.8 % (11.6-16.5) 06/23/19 05:46 Plt Count 194 X10^3/uL (150.0-450.0) 06/23/19 05:46 MPV 8.1 fL (7.4-11.0) 06/23/19 05:46 Neut % (Auto) 49.3 % (42.0-75.0) 06/23/19 05:46 Lymph % (Auto) 35.9 % (21.0-51.0) 06/23/19 05:46 [place] % (Auto) 10.8 % (0.0-13.0) 06/23/19 05:46 Eos % (Auto) 3.5 % (0.9-2.9) H 06/23/19 05:46 Baso % (Auto) 0.5 % (0.2-1.0) 06/23/19 05:46 Neut # (Auto) 3.2 x10^3/uL (2.2-4.8) 06/23/19 05:46 Lymph # (Auto) 2.3 X10^3/uL (1.3-2.9) 06/23/19 05:46 [place] # (Auto) 0.7 x10^3/uL (0.3-0.8) 06/23/19 05:46 Eos # (Auto) 0.2 x10^3/uL (0.0-0.2) 06/23/19 05:46 Baso # (Auto) 0.0 X10^3/uL (0.0-0.1) 06/23/19 05:46 Absolute Nucleated RBC 0.1 /100WBC 06/23/19 05:46 Sodium 139 mmol/L (136-145) 06/23/19 05:46 Corrected Sodium TNP 06/23/19 05:46 Potassium 3.9 mmol/L (3.5-5.1) 06/23/19 05:46 Chloride 102 mmol/L (98-107) 06/23/19 05:46 Carbon Dioxide 31.7 mmol/L (21-32) 06/23/19 05:46 BUN 8 mg/dL (7-18) 06/23/19 05:46 Creatinine 1.00 mg/dL (0.55-1.02) 06/23/19 05:46 Est GFR (MDRD) Af Amer > 60 (>60) 06/23/19 05:46 Est GFR (MDRD) Non-Af 58 (>60) L 06/23/19 05:46 Glucose 87 mg/dL (65-99) 06/23/19 05:46 Calcium 9.4 mg/dL (8.5-10.1) 06/23/19 05:46 Corrected Calcium TNP 06/22/19 05:28 Total Bilirubin 0.40 mg/dL (0.2-1.0) 06/22/19 05:28 AST 15 Units/L (15-37) 06/22/19 05:28 ALT 15 Units/L (12-78) 06/22/19 05:28 Alkaline Phosphatase 86 Units/L (46-116) 06/22/19 05:28 Total Protein 7.4 g/dL (6.4-8.2) 06/22/19 05:28 Albumin 3.5 g/dL (3.4-5.0) 06/22/19 05:28 Globulin 3.9 g/dL (2.5-4.5) 06/22/19 05:28 Albumin/Globulin Ratio 0.9 Ratio (1.1-2.1) L 06/22/19 05:28 Stool Description Fob tube 06/21/19 22:53 Stl Occult Blood (IFOB) Positive (NEGATIVE) A 06/21/19 22:53 Reason For Visit: RECTAL BLEEDING, UNCONTROLLED HTN Discharge Diagnosis All Active Problems (Updated 06/22/19 @ 09:08 by Nimo Aponte) JAMES (acute kidney injury) (Acute) Internal hemorrhoid (Acute) Diverticulosis (Acute) Palpitations (Acute) Upper respiratory infection (Acute) Headache (Acute) Nausea (Acute) Hypertension, uncontrolled (Acute) Bright red rectal bleeding (Acute) Plan of Treatment: Continue with present treatment and follow up plan. Pt is to keep follow up appointment as instructed and take medications as ordered. Discharge Medications Discharge Medications: No Known Drug Allergies Allergy (Verified 06/22/19 01:08) CONTINUE taking the following medications Vitamin D 5,000 1 cap PO DAILY 06/22/19 [History] biotin 1 mg PO DAILY 06/22/19 [History] clonidine HCl 0.1 mg PO BID PRN 06/22/19 [History] docusate sodium 100 mg PO DAILY 06/22/19 [History] ondansetron HCl [Zofran] 4 mg PO Q4-6H PRN 06/22/19 [History] red yeast rice 600 mg PO DAILYPC 06/22/19 [History] temazepam 30 mg PO HS 06/22/19 [History] New Prescriptions hydrocortisone acetate [Anucort-HC] 25 mg MO BID 30 Days #60 ea 06/23/19 [Rx]
[2019-06-23] MEDS: LOPRESSOR TAB 25 MG PO SCH (09:08)
[2019-06-23] MEDS: NexIUM PO SCH (09:08)
[2019-06-23] MEDS: ANUCORT-HC SUPP PR SCH (09:08)
[2019-06-23 12:12] VITALS: BP 145/77
== END 2019-06-23 12:25 | disposition home or self-care (01) ==
LOC: MED/SURG 17:54 → ER 17:54 → MED/SURG 06-22 00:09
PROVIDERS: ADMIT Internal Medicine; ATTEND Internal Medicine
DX: N17.8 Other acute kidney failure; K21.9 Gastro-esophageal reflux disease without esophagitis; R00.2 Palpitations; K64.8 Other hemorrhoids; R94.31 Abnormal electrocardiogram [ECG] [EKG]; K57.90 Diverticulosis of intestine, part unspecified, without perforation or abscess without bleeding; K62.5 Hemorrhage of anus and rectum; I10 Essential (primary) hypertension
CPT/HCPCS: 36415; 74022; 74177; 80048; 80053; 82270; 85025; 93005; 96360; 96361; 96365; 96374; 99285; A4216; A4222; G0378; J3490; J7030